=== PATIENT | male | born 1995 | race Caucasian/White ===

== ENCOUNTER 2021-05-27 08:24 | Outpatient (CLI) | payer OTHER, SELFPAY ==
[2021-05-27 09:28] LABS: Basophils # 0.1 10^3/uL (0.0-0.1); Basophils % 1.1 %; Eosinophils # 0.2 10^3/uL (0.0-0.8); Eosinophils % 2.5 %; Hemoglobin 13.7 g/dL (11.7-16.6); Lymphocytes # 1.7 10^3/uL (0.8-4.8); Lymphocytes % 26.1 %; Mean Corpuscular HGB Conc 33.4 g/dL (30.0-36.0); Mean Corpuscular Hemoglobin 30.2 pg (28.0-34.0); Mean Corpuscular Volume 90.5 fL (80-94); Mean Platelet Volume 9.6 fL (7.4-10.4); Monocytes # 0.4 10^3/uL (0.2-0.9); Monocytes % 6.9 %; Neutrophils # 4.04 10^3/uL (1.8-7.7); Neutrophils % 63.2 %; Nucleated Red Blood Cells % 0 %; Platelet Count 242 10^3/cmm (130-400); Red Blood Count 4.53 10^6/uL (4.1-5.3); Red Cell Distribution Width 11.9 % (12.1-15.1); White Blood Count 6.4 10^3/uL (4.0-10.0)
[2021-05-27 10:04] LABS: Anion Gap 13.3 (5-19); Blood Urea Nitrogen 6 mg/dL (6-20); Calcium 9.6 mg/dL (8.5-10.5); Carbon Dioxide 31 mmol/L (22-29); Chloride 101 mmol/L (98-107); Glomerular Filtration Rate 115.1 mL/min (90-130); Glucose 85 mg/dL (65-115); Osmolality Calculated 289 mOsm/kg (285-295); Potassium 4.3 mmol/L (3.5-5.1); Sodium 141 mmol/L (136-145)
[2021-05-27 10:12] LABS: Calcium 9.4 mg/dL (8.5-10.5); Cortisol Random 9.67 ug/dL (2.47-19.5)
[2021-05-27 11:24] LABS: Parathyroid Hormone 26.7 pg/mL (15-65)
== END 2021-05-27 08:25 | disposition home or self-care (01) ==
PROVIDERS: PCP Nurse Practitioner Family; Visit Provider Internal Medicine
DX: R53.81 Other malaise (principal)
CPT/HCPCS: 80048; 82310; 82533; 82941; 83525; 83970; 84305; 85025; 86316

== ENCOUNTER 2021-06-27 08:50 | Outpatient (CLI) | payer OTHER, SELFPAY ==
[2021-06-27 09:52] LABS: Hematocrit 42.2 % (42.0-52.0); Hemoglobin 14.4 g/dL (11.7-16.6); Mean Corpuscular HGB Conc 34.1 g/dL (30.0-36.0); Mean Corpuscular Hemoglobin 30.4 pg (28.0-34.0); Mean Platelet Volume 9.6 fL (7.4-10.4); Platelet Count 253 10^3/cmm (130-400); Red Blood Count 4.74 10^6/uL (4.1-5.3); Red Cell Distribution Width 11.9 % (12.1-15.1); White Blood Count 6.3 10^3/uL (4.0-10.0)
[2021-06-27 10:07] LABS: Alanine Aminotransferase 25 U/L (0-41); Alkaline Phosphatase 77 IU/L (40-130); Anion Gap 13.2 (5-19); Aspartate Amino Transferase 16 U/L (0-40); Blood Urea Nitrogen 8 mg/dL (6-20); Carbon Dioxide 29 mmol/L (22-29); Chloride 98 mmol/L (98-107); Globulin 3.6 g/dL (1.3-4.6); Glomerular Filtration Rate 134.3 mL/min (90-130); Glucose 90 mg/dL (65-115); Osmolality Calculated 280 mOsm/kg (285-295); Potassium 4.2 mmol/L (3.5-5.1); Sodium 136 mmol/L (136-145); Total Bilirubin 0.3 mg/dL (0.15-1.2); Total Protein 8.6 g/dL (6.6-8.7)
[2021-06-27 10:18] LABS: Absolute Segmented Neutrophil 3.9 10/cmm (1.6-7.1); Eosinophils 0 %; Lymphocytes 35 %; Lymphocytes Absolute 2.2 10^3/cmm (1.2-3.4); Monocytes Absolute 0.2 10^3/cmm (0.1-0.6); Segmented Neutrophils 62 %; Total Cells Counted 100 (0-100)
[2021-06-27 10:19] LABS: Absolute Neutrophil 3.9 10^3/cmm (1.4-6.5); Platelet Estimate Normal (Normal)
[2021-06-28 12:16] LABS: Anti-streptolysin O 122 IU/mL (<200)
[2021-06-28 15:12] LABS: Anti-Nuclear Antibody Screen NEGATIVE (NEGATIVE)
== END 2021-06-27 08:51 | disposition home or self-care (01) ==
PROVIDERS: PCP Nurse Practitioner Family; Visit Provider Internal Medicine
DX: R29.2 Abnormal reflex (principal)
CPT/HCPCS: 80053; 85007; 85027; 86038; 86060; 86738

== ENCOUNTER 2021-08-05 08:19 | Outpatient (CLI) | payer OTHER, SELFPAY ==
[2021-08-05 09:05] LABS: Basophils # 0.1 10^3/uL (0.0-0.1); Basophils % 0.7 %; Eosinophils # 0.1 10^3/uL (0.0-0.8); Eosinophils % 1.3 %; Hematocrit 41.2 % (42.0-52.0); Hemoglobin 13.9 g/dL (11.7-16.6); Lymphocytes # 2.8 10^3/uL (0.8-4.8); Lymphocytes % 39.7 %; Mean Corpuscular HGB Conc 33.7 g/dL (30.0-36.0); Mean Corpuscular Hemoglobin 30.3 pg (28.0-34.0); Mean Platelet Volume 9.1 fL (7.4-10.4); Monocytes # 0.6 10^3/uL (0.2-0.9); Monocytes % 8.1 %; Neutrophils # 3.58 10^3/uL (1.8-7.7); Neutrophils % 49.9 %; Nucleated Red Blood Cells % 0 %; Platelet Count 302 10^3/cmm (130-400); Red Blood Count 4.58 10^6/uL (4.1-5.3); White Blood Count 7.2 10^3/uL (4.0-10.0)
[2021-08-05 09:42] LABS: Alanine Aminotransferase 30 U/L (0-41); Albumin Level 4.8 g/dL (3.5-5.2); Alkaline Phosphatase 76 IU/L (40-130); Anion Gap 13.5 (5-19); Aspartate Amino Transferase 16 U/L (0-40); Blood Urea Nitrogen 8 mg/dL (6-20); Calcium 9.9 mg/dL (8.5-10.5); Carbon Dioxide 30 mmol/L (22-29); Chloride 100 mmol/L (98-107); Globulin 3.7 g/dL (1.3-4.6); Glomerular Filtration Rate 115.1 mL/min (90-130); Glucose 90 mg/dL (65-115); Osmolality Calculated 288 mOsm/kg (285-295); Potassium 3.5 mmol/L (3.5-5.1); Sodium 140 mmol/L (136-145); Total Bilirubin 0.3 mg/dL (0.15-1.2); Total Protein 8.5 g/dL (6.6-8.7)
[2021-08-06 12:42] LABS: Anti-streptolysin O 126 IU/mL (<200)
[2021-08-09 22:03] LABS: Bartonella DNA PCR Source WHOLE BLOOD; Bartonella Henselae DNA PCR NOT DETECTED; Bartonella Quintana DNA PCR NOT DETECTED
== END 2021-08-05 08:20 | disposition home or self-care (01) ==
LOC: LAB 08:23
PROVIDERS: PCP Nurse Practitioner Family; Visit Provider Internal Medicine
DX: G12.29 Other motor neuron disease (principal)
CPT/HCPCS: 36415; 80053; 82787; 85025; 86060; 86738; 87801

== ENCOUNTER 2021-10-22 12:13 | Outpatient (CLI) | payer OTHER, SELFPAY ==
[2021-10-22 13:04] LABS: Basophils # 0.1 10^3/uL (0.0-0.1); Eosinophils # 0.1 10^3/uL (0.0-0.8); Eosinophils % 2.3 %; Hematocrit 43.5 % (42.0-52.0); Hemoglobin 14.9 g/dL (11.7-16.6); Lymphocytes # 1.5 10^3/uL (0.8-4.8); Lymphocytes % 24.2 %; Mean Corpuscular HGB Conc 34.3 g/dL (30.0-36.0); Mean Corpuscular Hemoglobin 30.2 pg (28.0-34.0); Mean Corpuscular Volume 88.1 fl (80-94); Mean Platelet Volume 9.5 fL (7.4-10.4); Monocytes # 0.5 10^3/uL (0.2-0.9); Neutrophils # 3.86 10^3/uL (1.8-7.7); Neutrophils % 64.3 %; Nucleated Red Blood Cells % 0 %; Platelet Count 274 10^3/cmm (130-400); Red Blood Count 4.94 10^6/uL (4.1-5.3); Red Cell Distribution Width 11.8 % (12.1-15.1)
[2021-10-22 13:23] LABS: Erythrocyte Sedimentation Rate 11 mm/hr (0-10)
[2021-10-22 13:54] LABS: Alanine Aminotransferase 32 U/L (0-41); Albumin Level 4.7 g/dL (3.5-5.2); Alkaline Phosphatase 86 IU/L (40-130); Anion Gap 17.1 (5-19); Aspartate Amino Transferase 16 U/L (0-40); Blood Urea Nitrogen 11 mg/dL (6-20); Calcium 9.6 mg/dL (8.5-10.5); Carbon Dioxide 26 mmol/L (22-29); Chloride 98 mmol/L (98-107); Globulin 3.2 g/dL (1.3-4.6); Glomerular Filtration Rate 134.3 mL/min (90-130); Glucose 107 mg/dL (65-115); Osmolality Calculated 284 mOsm/kg (285-295); Potassium 4.1 mmol/L (3.5-5.1); Sodium 137 mmol/L (136-145); Thyroid Stimulating Hormone 0.98 uIU/mL (0.27-4.20); Total Bilirubin 0.3 mg/dL (0.15-1.2); Total Protein 7.9 g/dL (6.6-8.7)
[2021-10-22 14:24] LABS: Free T4 Free Thyroxine 1.57 ng/dL (0.82-1.77); T3 Free 3.6 PG/ML (2.0-4.4)
[2021-10-24 12:18] LABS: Anti-streptolysin O 119 IU/mL (<200)
== END 2021-10-22 12:14 | disposition home or self-care (01) ==
PROVIDERS: PCP Nurse Practitioner Family; Visit Provider Internal Medicine
DX: R53.81 Other malaise (principal); G93.40 Encephalopathy, unspecified
CPT/HCPCS: 80053; 84439; 84443; 84481; 84482; 85025; 85651; 86060; 86215; 86738; 87581

== ENCOUNTER 2021-12-31 13:15 | Outpatient (CLI) | payer OTHER, SELFPAY ==
[2021-12-31 14:00] LABS: Basophils # 0.1 10^3/uL (0.0-0.1); Basophils % 1.3 %; Hematocrit 37.7 % (42.0-52.0); Lymphocytes # 1.3 10^3/uL (0.8-4.8); Lymphocytes % 33.4 %; Mean Corpuscular HGB Conc 34.5 g/dL (30.0-36.0); Mean Corpuscular Hemoglobin 32.3 pg (28.0-34.0); Mean Corpuscular Volume 93.5 fl (80-94); Mean Platelet Volume 9.3 fL (7.4-10.4); Monocytes # 0.3 10^3/uL (0.2-0.9); Monocytes % 8.3 %; Neutrophils # 2.16 10^3/uL (1.8-7.7); Nucleated Red Blood Cells % 0 %; Platelet Count 266 10^3/cmm (130-400); Red Blood Count 4.03 10^6/uL (4.1-5.3); Red Cell Distribution Width 15.9 % (12.1-15.1); White Blood Count 3.9 10^3/uL (4.0-10.0)
[2021-12-31 14:37] LABS: Anion Gap 14.1 (5-19); Blood Urea Nitrogen 10 mg/dL (6-20); Calcium 10.2 mg/dL (8.5-10.5); Carbon Dioxide 26 mmol/L (22-29); Chloride 101 mmol/L (98-107); Glomerular Filtration Rate 115.1 mL/min (90-130); Glucose 100 mg/dL (65-115); Osmolality Calculated 283 mOsm/kg (285-295); Potassium 4.1 mmol/L (3.5-5.1); Sodium 137 mmol/L (136-145)
[2022-01-03 20:57] LABS: Glucose-6-Phosphate Dehydrogen 16.2 U/g Hgb (7.0-20.5)
== END 2021-12-31 13:16 | disposition home or self-care (01) ==
LOC: LAB 13:17
PROVIDERS: PCP Nurse Practitioner Family; Visit Provider Internal Medicine
DX: R53.83 Other fatigue (principal)
CPT/HCPCS: 80048; 82955; 85025

== ENCOUNTER 2022-04-15 10:36 | Outpatient (CLI) | payer OTHER, SELFPAY ==
[2022-04-15 11:58] LABS: Basophils # 0.1 10^3/uL (0.0-0.1); Basophils % 1.3 %; Eosinophils # 0.1 10^3/uL (0.0-0.8); Eosinophils % 1.3 %; Hematocrit 34.9 % (42.0-52.0); Hemoglobin 12.4 g/dL (11.7-16.6); Lymphocytes # 1.4 10^3/uL (0.8-4.8); Lymphocytes % 36.9 %; Mean Corpuscular HGB Conc 35.5 g/dL (30.0-36.0); Mean Corpuscular Volume 89.9 fl (80-94); Mean Platelet Volume 9.7 fL (7.4-10.4); Monocytes # 0.3 10^3/uL (0.2-0.9); Monocytes % 8.1 %; Neutrophils # 1.93 10^3/uL (1.8-7.7); Neutrophils % 52.1 %; Nucleated Red Blood Cells % 0 %; Platelet Count 242 10^3/cmm (130-400); Red Blood Count 3.88 10^6/uL (4.1-5.3); Red Cell Distribution Width 14.3 % (12.1-15.1); White Blood Count 3.7 10^3/uL (4.0-10.0)
[2022-04-15 12:20] LABS: Alanine Aminotransferase 39 U/L (0-41); Albumin Level 4.9 g/dL (3.5-5.2); Alkaline Phosphatase 67 IU/L (40-130); Aspartate Amino Transferase 27 U/L (0-40); Blood Urea Nitrogen 15 mg/dL (6-20); Calcium 9.8 mg/dL (8.5-10.5); Carbon Dioxide 25 mmol/L (22-29); Chloride 103 mmol/L (98-107); Globulin 4.1 g/dL (1.3-4.6); Glomerular Filtration Rate 133.3 mL/min (90-130); Glucose 99 mg/dL (65-115); Osmolality Calculated 287 mOsm/kg (285-295); Sodium 138 mmol/L (136-145); Total Bilirubin 0.4 mg/dL (0.15-1.2)
[2022-04-15 12:21] LABS: Anion Gap 14.4 (5-19); Potassium 4.4 mmol/L (3.5-5.1)
== END 2022-04-15 10:37 | disposition home or self-care (01) ==
PROVIDERS: PCP Nurse Practitioner Family; Visit Provider Internal Medicine
DX: R53.83 Other fatigue (principal)
CPT/HCPCS: 80053; 85025